=== PATIENT | male | born 1990 | race Caucasian/White ===

== ENCOUNTER 2024-05-08 22:35 | Inpatient (IN) | payer OTHER, SELFPAY ==
[2024-05-08 23:17] VITALS: RESP 16; BMI 29.5
--- NOTE | 2024-05-08 23:50 | ED.GENADULT ---
HPI - General Adult General Chief complaint: Psychiatric Symptoms Stated complaint: Psych Eval uncooperative Time Seen by Provider: 05/08/24 23:11 Source: patient, RN notes reviewed and old records reviewed Mode of arrival: EMS Limitations: no limitations History of Present Illness ED Provider: Alessandro RAYA narrative: 33-year-old male who denies any past medical history presents for evaluation of a ?psych eval. ? The police were called to the patient's apartment as he was reportedly screaming at the top of his lungs The patient reports that he was ?dealing with things. He does not want to answer any further questions He reports that he feels well overall He denies any previous psychiatric admissions The patient denies any illicit substance abuse He reports that he is not on any medications and is not supposed to be on any medications Per EMS, the patient was ordering multiple [employer] crosses online via his phone EN route to the hospital Related Data Home Medications ?Medication ?Instructions ?Recorded ?Confirmed No Known Home Meds 05/09/24 05/09/24 Allergies Allergy/AdvReac Type Severity Reaction Status Date / Time Unable to Assess Allergy Verified 05/08/24 23:23 Review of Systems Constitutional: Constitutional: Denies body ache(s), Denies chills, Denies fever(s) and Denies headache(s) Eyes: Eyes: Denies blurry vision ENT: Denies vertigo, Denies dizziness and Denies headache(s) Cardiovascular: Cardiovascular: Denies chest pain Respiratory: Respiratory: Denies cough Gastrointestinal: Gastrointestinal: Denies abdominal pain Musculoskeletal: Musculoskeletal: Denies back pain Integumentary/Breasts: Skin/Breast: Denies rash Neurologic: Denies vertigo, Denies dizziness and Denies headache(s) [facility] Social History Social History Household Members: Other Household Members Other:: another male Housing: Apartment Do you presently have visiting nurse or other home services: No Patient Tobacco Use Status: Never used Tobacco Use of substances other than those prescribed or required for medical reasons: No Other Past Substance Use Problem:: Tox screen negative Any prior treatment program specific to substance use: No Advance Directives: No Do you have a plan to hurt others: No Plan Recently lost weight without trying: No Eating poorly because of decreased appetite: No Nutrition Risks: No Nutritional Risk Poor oral hygiene: No Physical Exam ED Vital Signs: Vital Signs - 24 hr 05/08/24 23:17 05/09/24 02:36 Temperature 98.3 F Pulse Rate 113 H Respiratory Rate 16 16 Blood Pressure 126/85 Pulse Oximetry 95 Oxygen Delivery Method Room Air BMI result Body Mass Index 29.5 Const General: healthy appearing, comfortable, no acute distress, alert and awake Nutritional Appearance: well nourished Orientation/consciousness: patient oriented x3 HENMT Head: Yes normocephalic and Yes atraumatic Eyes Eyelids: Yes eyelids normal Conjunctivae: conjunctivae normal Sclerae: sclerae normal Corneas: corneas normal Pupils: Equal, round and reactive pupils present EOM: EOMs intact bilaterally Neck Neck: Yes full ROM Resp Effort & Inspection: normal respiratory effort, able to speak in complete sentences and not labored Skin General skin exam: elasticity normal Neuro General: patient oriented x3 Cranial nerves: Yes Equal, round and reactive pupils present and Yes Bilaterally intact EOM present Extrem Other: Moving all extremities well without any obvious deformities Course Reevaluation(s) Reevaluation #1: No acute events, patient otherwise appears well and is transferred up to the in patient is psychiatric unit. Physician obs has ended and patient has no resp distress, RRR, no abd abnml findings. Time: 12:36 Medical Decision Making Medical Decision Making MDM Narrative: 33-year-old male presents for evaluation on a section 12 for a psychiatric evaluation. The patient appears to be responding to internal stimuli. He does answer some questions in his answers seem appropriate. I do not have any previous encounters at this facility for previous psychiatric illnesses. The patient will require medical workup and a care team evaluation once cleared Differential Diagnosis Differential Diagnoses: The differential diagnosis associated with the presentation includes Schizophrenia Schizoaffective disorder Paranoia Psychosis Substance abuse Bipolar disorder Lab Data 05/09/24 09:15 05/09/24 09:15 Labs: Lab Results 05/09/24 05/09/24 Range/Units 05:13 09:15 WBC 9.3 (4.8-10.8) X10*3/uL RBC 5.74 (4.60-5.80) X10*6/uL Hgb 17.3 (14.0-18.0) g/dl Hct 48.6 (42.0-52.0) % MCV 84.7 (80.0-98.0) fL MCH 30.1 (27.0-33.0) pg MCHC 35.6 (31.0-36.0) g/dl RDW 11.7 (11.0-16.0) % Plt Count 285 (160-400) X10*3/uL MPV 10.0 (9.4-12.4) fL Immature Gran % (Auto) 0.3 (0.0-0.4) % Neut % (Auto) 57.5 (45-73) % Lymph % (Auto) 33.0 (20-40) % [place] % (Auto) 5.2 (2-11) % Eos % (Auto) 3.6 (0-4) % Baso % (Auto) 0.4 (0-2) % Lymph # (Auto) 3.1 (1.2-4.9) X10*3/uL [place] # (Auto) 0.5 (0.1-1.2) X10*3/uL Eos # (Auto) 0.3 (0.0-0.4) X10*3/uL Baso # (Auto) 0.0 (0.0-0.2) X10*3/uL Abs Immat Gran (auto) 0.03 (0.00-0.03) X10*3/uL Absolute Neuts (auto) 5.3 (2.0-8.3) x10*3/uL Absolute Nucleated RBC 0.000 (0.0-0.012) X10*3/uL Nucleated RBC % (auto) 0.0 (0.0-0.2) /100WBC Sodium 143 (135-145) mmol/L Potassium 4.1 (3.3-5.1) mmol/L Chloride 106 (96-108) mmol/L Carbon Dioxide 26 (22-29) mmol/L Anion Gap 15 (12-20) BUN 12 (9-16) mg/dL Creatinine 0.85 (0.5-1.4) mg/dL Estim Creat Clear Calc 138.8 Estimated GFR > 60 Random Glucose 148 H (60-115) mg/dL Calcium 9.4 (8.4-10.2) mg/dL Total Bilirubin 0.3 (0.0-1.0) mg/dL AST 19 (5-37) U/L ALT 28 (0-40) U/L Alkaline Phosphatase 63 (39-117) U/L Total Protein 7.1 (6.5-8.0) g/dL Albumin 4.4 (3.5-5.0) g/dL Salicylates < 5.0 L (15-30) mg/dL Urine Opiates Screen Not Detected (Not Detect) Ur Buprenorphine Scrn Not Detected (Not Detect) ng/mL Ur Oxycodone Screen Not Detected (Not Detect) ng/mL Urine Methadone Screen Not Detected (Not Detect) ng/mL Urine Fentanyl Screen Not Detected (Not Detect) Acetaminophen < 3 (<30) mcg/mL Ur Barbiturates Screen Not Detected (Not Detect) Ur Phencyclidine Scrn Not Detected (Not Detect) Ur Amphetamines Screen Not Detected (Not Detect) U Benzodiazepines Scrn Not Detected (Not Detect) Urine Cocaine Screen Not Detected (Not Detect) U Marijuana (THC) Screen Not Detected (Not Detect) Ethyl Alcohol < 10 mg/dL Discharge Plan Discharge Clinical Impression: Acute psychosis Patient Disposition: Admitted As Inpatient Interventions: Admission Worksheet (ED) Last Done: 05/09/24 13:18 Discharge Date/Time: 05/09/24 13:51
[2024-05-09 02:36] VITALS: BP 126/85; PULSE 113; RESP 16; TEMP 36.8; O2SAT 95
--- NOTE | 2024-05-09 03:15 | PC.NURSE ---
patient changing mind about being coop[erative to give sample, keeps trying to argue he was unwilling to give sample. patient spoke to t/w for 4 miutes or so and started getting angry and more demNDING. t/w ended conversation and redirected client to try and get rest.
--- NOTE | 2024-05-09 05:37 | PC.NURSE ---
self dialoguing in room,
[2024-05-09 05:55] LABS: Amphetamine Screen Urine Not Detected (Not Detect); Barbiturates, Urine Not Detected (Not Detect); Benzodiazepines Screen Urine Not Detected (Not Detect); Buprenorphine Scr Not Detected (Not Detect); Cannabinoid Screen Urine Not Detected (Not Detect); Cocaine Screen Urine Not Detected (Not Detect); Fentanyl, urine Not Detected (Not Detect); Methadone Screen, Urine Not Detected (Not Detect); Opiate Screen Urine Not Detected (Not Detect); Oxycodone Screen Urine Not Detected (Not Detect); Phencyclidine Screen Urine Not Detected (Not Detect)
--- NOTE | 2024-05-09 07:19 | PC.NURSE ---
Care of Pt assumed at change of shift. Pt observes resting quietly in bed. Breakfast tray provided.
[2024-05-09 09:21] LABS: MANUAL DIFF FLAG NO
[2024-05-09 09:24] LABS: Basophils Percent Auto 0.4 % (0-2); Eosinophils Absolute Auto 0.3 X10*3/uL (0.0-0.4); Eosinophils Percent Auto 3.6 % (0-4); Hematocrit 48.6 % (42.0-52.0); Hemoglobin 17.3 g/dl (14.0-18.0); Imm Gran Abs Auto 0.03 X10*3/uL (0.00-0.03); Imm Gran Pct Auto 0.3 % (0.0-0.4); Lymphocytes Absolute Auto 3.1 X10*3/uL (1.2-4.9); Mean Corpuscular HGB Conc 35.6 g/dl (31.0-36.0); Mean Corpuscular Hemoglobin 30.1 pg (27.0-33.0); Mean Corpuscular Volume 84.7 fL (80.0-98.0); Monocytes Absolute Auto 0.5 X10*3/uL (0.1-1.2); Monocytes Percent Auto 5.2 % (2-11); Neutrophils Absolute Auto 5.3 x10*3/uL (2.0-8.3); Neutrophils Percent Auto 57.5 % (45-73); Platelet Count 285 X10*3/uL (160-400); Red Blood Count 5.74 X10*6/uL (4.60-5.80); Red Cell Distribution Width 11.7 % (11.0-16.0); White Blood Count 9.3 X10*3/uL (4.8-10.8)
[2024-05-09 09:41] LABS: Acetaminophen LAB < 3 mcg/mL (<30); Alanine Aminotransferase 28 U/L (0-40); Albumin Level 4.4 g/dL (3.5-5.0); Alkaline Phosphatase 63 U/L (39-117); Anion Gap 15 (12-20); Aspartate Amino Transferase 19 U/L (5-37); Bilirubin Total 0.3 mg/dL (0.0-1.0); Blood Urea Nitrogen 12 mg/dL (9-16); Calcium 9.4 mg/dL (8.4-10.2); Carbon Dioxide 26 mmol/L (22-29); Chloride 106 mmol/L (96-108); Creatinine Clr Calc Pharmacy 138.8; Estimated Glomerular Filt Rate > 60; Ethanol < 10 mg/dL; Glucose Random 148 mg/dL (60-115); Potassium 4.1 mmol/L (3.3-5.1); Salicylate < 5.0 mg/dL (15-30); Sodium 143 mmol/L (135-145); Total Protein 7.1 g/dL (6.5-8.0)
--- NOTE | 2024-05-09 11:46 | PHA.MEDREC ---
Addendum entered by Chaz Nieto RPh 05/09/24 13:31: Med rec was reviewed by [facility]. Original Note: Pharmacy Consult ? Medication Reconciliation Pharmacy reviewed med rec done by nursing. No Known Home Meds was confirmed and after looking at/updating claims, no medication history can be found got them.
--- NOTE | 2024-05-09 13:48 | PC.NURSE ---
Pt admitted to inpatient floor. Verbal report given via phone to RN Luciano Upon arrival of petroleum transport driver and Security, Pt was resistive to wheelchair. After minutes of encouragement Pt was cooperative and placed himself in the wheelchair. Pt left unit without further issue.
[2024-05-09 14:17] VITALS: BP 123/69; PULSE 64; RESP 16; TEMP 37.2; O2SAT 98
--- NOTE | 2024-05-09 15:12 | PC.ADMIT ---
Pablito is 33 y/o [place]jib[place]citizen of [place] speaking male who was admitted to at 1355 from the [facility] on 12 for treatment of Unspecified Bipolar d/o with psychosis. Pt presented via ambulance after his roommate called EMS for pt screaming at the top of his lungs. Pt has had increased paranoia and psychosis. Pts cousin reports pt hasn't been taking medications, but when he does he is stable. Cousin reports pt was taking Risperdal. Pt is A&O x2, not to the situation. Pts mood and affect is angry and uncooperative. Pt refused to do the admission process telling TW ?go do what you do, I?m done, don?t ask me anything else.? Pt?s tone is tense and angry with glaring. Pt refused to sign EVANGELINA. Pt denied SI/HI/AH/VH, but does look internally preoccupied. Pt denied ideation, plan or intent to harm self or others. Pt refused to discuss appetite or sleep. Pts tox screen was negative. No medical issues noted or reported. Pt refused to discuss goals, stating, ?when do I get to go home. Pt placed on 15 minute safety checks. Pt refused an influenza vaccine.
[2024-05-09 20:15] VITALS: BP 135/75; PULSE 111; RESP 16; TEMP 36.8; O2SAT 97
[2024-05-10 07:42] VITALS: BP 117/71; PULSE 100; RESP 14; TEMP 36.9; O2SAT 98
--- NOTE | 2024-05-10 09:44 | HO.PSYADMNOT ---
HPI Date of Service: 05/10/24 Chief Complaint: Psychosis HPI Subjective Notes: Pool Warning Narrative: per CARE team eval, pt BIBA to [facility] after pt's roommate called police due to pt's yelling in their apartment. he reportedly has not been managing his ADLs and has been religiously preoccupied. observed to have been buying crucifixes on his phone during transportation to the ED. he was minimally cooperative with CARE team staff, refusing to answer most questions. he was described as appearing to be RIS during assessment. he avoided answering a questions re AH. he was observed by staff to be masturbating on top of his bed, in view of passers by. per collateral from pt's cousin mookie, pt is off baseline and has not been bathing or caring for himself and was described as despondent. brother reports pt has Dx of bipolar disorder. on interview with MD, pt appears sullen and surly. he denies mental illness and is verbally aggressive with MD on asking of routine psych eval questions, as he asserts the mere asking of the questions implies mental illness. pt states he will not take medications. he tersely answers questions and is quick to exit the interview. he is informed of 12b expiry on monday and legal requirement for some sort of action on that day on the hospital's part. asked MD to repeat some statements more than once. it was unclear if he lacks the cognitive capacity to understand complex concepts or if he was distracted by internal stimuli. Past Psychiatric History: hosps: fuck you, that's disrespectful. i told you i don't have mental illness. per collateral from cousin mookie, pt has been hospitalized at least once, in [facility]. SA: denies. per cousin, may have SA Hx. SIB: denies outpt: denies per brother, pt has h/o bipolar disorder Dx and risperidone Rx. Medical Evaluation Reviewed: Yes PMF Narrative: denies Family History: denies Social History: rents an apartment in [place]. has a roommate. 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 initially says he is unmarried and childless, then amends his answer to say he is and has 2 children and his and kids are in [place]. states he came to [place] 2 years ago. per brother, pt is from [place] where he was raised by both parents. he has 2 sibs (bro and sis). cousin reported he is never with no children. Substance History: denies use of nicotine/tobacco, alcohol, cannabis, and any other illicit or recreational drugs. Trauma History: not assessed Diagnostics Vital Signs (24Hr): Vital Signs - 24 hr 05/09/24 14:17 05/09/24 20:15 05/10/24 07:42 Temperature 98.9 F 98.3 F 98.4 F Pulse Rate 64 111 H 100 Respiratory Rate 16 16 14 Blood Pressure 123/69 135/75 117/71 Pulse Oximetry 98 97 98 Oxygen Delivery Method Room Air Room Air Room Air BMI result Body Mass Index 29.5 Labs 05/09/24 09:15 05/09/24 09:15 Labs: Laboratory Results - last 48 hr 05/09/24 05/09/24 05:13 09:15 WBC 9.3 RBC 5.74 Hgb 17.3 Hct 48.6 MCV 84.7 MCH 30.1 MCHC 35.6 RDW 11.7 Plt Count 285 MPV 10.0 Immature Gran % (Auto) 0.3 Neut % (Auto) 57.5 Lymph % (Auto) 33.0 [place] % (Auto) 5.2 Eos % (Auto) 3.6 Baso % (Auto) 0.4 Lymph # (Auto) 3.1 [place] # (Auto) 0.5 Eos # (Auto) 0.3 Baso # (Auto) 0.0 Abs Immat Gran (auto) 0.03 Absolute Neuts (auto) 5.3 Absolute Nucleated RBC 0.000 Nucleated RBC % (auto) 0.0 Sodium 143 Potassium 4.1 Chloride 106 Carbon Dioxide 26 Anion Gap 15 BUN 12 Creatinine 0.85 Estim Creat Clear Calc 138.8 Estimated GFR > 60 Random Glucose 148 H Calcium 9.4 Total Bilirubin 0.3 AST 19 ALT 28 Alkaline Phosphatase 63 Total Protein 7.1 Albumin 4.4 Salicylates < 5.0 L Urine Opiates Screen Not Detected Ur Buprenorphine Scrn Not Detected Ur Oxycodone Screen Not Detected Urine Methadone Screen Not Detected Urine Fentanyl Screen Not Detected Acetaminophen < 3 Ur Barbiturates Screen Not Detected Ur Phencyclidine Scrn Not Detected Ur Amphetamines Screen Not Detected U Benzodiazepines Scrn Not Detected Urine Cocaine Screen Not Detected U Marijuana (THC) Screen Not Detected Ethyl Alcohol < 10 Meds/Allergies Meds Home Medications ?Medication ?Instructions ?Recorded ?Confirmed ?Type No Known Home Meds 05/09/24 05/09/24 History Allergies Allergies Allergy/AdvReac Type Severity Reaction Status Date / Time Unable to Assess Allergy Verified 05/08/24 23:23 Mental Status Exam Mental Status Exam Narrative: adequately dressed and groomed. superficially cooperative, but comes across as surly, resentful, and angry. no PMA/PMR. speech decr amount. nml loudness, latency. thoughts linear and variably logical. affect constricted, hyper-intense, non-labile, not c/w stated mood. mood good. denies SI/SIBI/HI/AVH. Assessment & Plan Assessment & Plan (1) Unspecified psychosis: Status: Acute Code(s): F29 - Unspecified psychosis not due to a substance or known physiological condition Plan pt denies mental illness and states he will not take medication. informed he would be kept here for a period of observation and that the decision about discharge would be made monday. pool warning provided. offer risperidone 2 mg QHS. Patient educated on: diagnosis and medication risk/benefits Reason for continued inpatient stay Substantial Risk for: inability to function Statement Statement: I have reviewed the history and physical and performed a pertinent examination on my patient. No changes have occurred unless specified. If the History and Physical was not performed prior to admission, the Hospitalist's service will be consulted for completing the admission physical. Time Spent With Patient Time: Total time managing care of this patient today __55__ minutes.
[2024-05-10 19:58] VITALS: RESP 18
--- NOTE | 2024-05-11 07:40 | P.PNPSI_ITS ---
Subjective Subjective Date of Service: 05/11/24 Reason For Visit: Psychosis Subjective Notes: Section 12B Interim History: flat, guarded and not attending groups as per nursing. Refusing medications. With remote mortgage underwriter would not engage and appeared very paranoid. Medication Compliance: No Side effects from medications: No Attending Groups: No Review of Systems Acute medical concerns: No Review of Systems Review of Systems Yes Unobtainable due to mental status Mental Status Exam Mental Status Exam Narrative: adequately dressed and groomed. Very paranoid and would not engage. Unable to assess SI, HI, hallucinations. Diagnostics Vital Signs (24Hr): Vital Signs - 24 hr 05/10/24 07:42 05/10/24 19:58 Temperature 98.4 F Pulse Rate 100 Respiratory Rate 14 18 Blood Pressure 117/71 Pulse Oximetry 98 Oxygen Delivery Method Room Air BMI result Body Mass Index 29.5 Labs 05/09/24 09:15 05/09/24 09:15 Labs: Laboratory Results - last 48 hr 05/09/24 09:15 WBC 9.3 RBC 5.74 Hgb 17.3 Hct 48.6 MCV 84.7 MCH 30.1 MCHC 35.6 RDW 11.7 Plt Count 285 MPV 10.0 Immature Gran % (Auto) 0.3 Neut % (Auto) 57.5 Lymph % (Auto) 33.0 [place] % (Auto) 5.2 Eos % (Auto) 3.6 Baso % (Auto) 0.4 Lymph # (Auto) 3.1 [place] # (Auto) 0.5 Eos # (Auto) 0.3 Baso # (Auto) 0.0 Abs Immat Gran (auto) 0.03 Absolute Neuts (auto) 5.3 Absolute Nucleated RBC 0.000 Nucleated RBC % (auto) 0.0 Sodium 143 Potassium 4.1 Chloride 106 Carbon Dioxide 26 Anion Gap 15 BUN 12 Creatinine 0.85 Estim Creat Clear Calc 138.8 Estimated GFR > 60 Random Glucose 148 H Calcium 9.4 Total Bilirubin 0.3 AST 19 ALT 28 Alkaline Phosphatase 63 Total Protein 7.1 Albumin 4.4 Salicylates < 5.0 L Acetaminophen < 3 Ethyl Alcohol < 10 Medications Medications Current Medications Acetaminophen (Acetaminophen 325 Mg Tablet) 650 mg PO Q6H PRN PRN Reason: Headache/Pain Mild Scale (1-3) Al Hydroxide/Mg Hydroxide (Magnesium Hydrox/Alum Hydrox 30 Ml Oral.Susp) 30 ml PO Q6H PRN PRN Reason: Heartburn/Nausea Hydroxyzine HCl (Hydroxyzine Hcl 25 Mg Tablet) 25 mg PO Q6H PRN PRN Reason: Anxiety Magnesium Hydroxide (Milk Of Magnesia 30 Ml Oral.Susp) 30 ml PO DAILY PRN PRN Reason: Constipation Nicotine Polacrilex (Nicotine Polacrilex 2 Mg Gum) 4 mg BUCCAL Q2H PRN PRN Reason: Nicotine Cravings Risperidone (Risperidone 2 Mg Tablet) 2 mg PO BEDTIME MARLA Last Admin: 05/10/24 22:37 Dose: Not Given Trazodone HCl (Trazodone Hcl 50 Mg Tablet) 50 mg PO BEDTIME MRX1 PRN PRN Reason: Insomnia Allergies Allergies Allergy/AdvReac Type Severity Reaction Status Date / Time Unable to Assess Allergy Verified 05/08/24 23:23 Assessment & Plan Assessment & Plan (1) Unspecified psychosis: Status: Acute Code(s): F29 - Unspecified psychosis not due to a substance or known physiological condition Plan pt denies mental illness and states he will not take medication. informed he would be kept here for a period of observation and that the decision about discharge would be made monday. pete warning provided. offer risperidone 2 mg QHS. 05/11/2024: Continue to offer Risperdal. Undergoing safety evaluation in context of Section 12 B which expires on 05/14/2024 Reason for continued inpatient stay Substantial Risk for: rapid decompensation Time Spent With Patient Time: Total time managing care of this patient today ____ minutes.
[2024-05-11 08:00] VITALS: RESP 18
[2024-05-11 20:00] VITALS: RESP 18
[2024-05-12 08:00] VITALS: BP 122/87; PULSE 89; RESP 18; TEMP 36.8; O2SAT 99
--- NOTE | 2024-05-12 10:16 | HO.PSYCHPN ---
Subjective Subjective Date of Service: 05/12/24 Reason For Visit: Psychosis Subjective Notes: Section 12B Interim History: Flat, guarded and not attending groups as per nursing. Refusing medications. Intense affect. Very paranoid and would not engage again why do you want to talk with me? I am fine. Whats going on, I dont want to talk . Review of Systems Review of Systems Yes Unobtainable due to mental status Mental Status Exam Mental Status Exam Narrative: adequately dressed and groomed. Intense affect. Very paranoid and would not engage again why do you want to talk with me? I am fine. Whats going on, I dont want to talk . Unable to assess SI, HI, hallucinations. Diagnostics Vital Signs (24Hr): Vital Signs - 24 hr 05/11/24 20:00 05/12/24 08:00 Temperature 98.3 F Pulse Rate 89 Respiratory Rate 18 18 Blood Pressure 122/87 Pulse Oximetry 99 Oxygen Delivery Method Room Air BMI result Body Mass Index 29.5 Labs 05/09/24 09:15 05/09/24 09:15 Medications Medications Current Medications Acetaminophen (Acetaminophen 325 Mg Tablet) 650 mg PO Q6H PRN PRN Reason: Headache/Pain Mild Scale (1-3) Al Hydroxide/Mg Hydroxide (Magnesium Hydrox/Alum Hydrox 30 Ml Oral.Susp) 30 ml PO Q6H PRN PRN Reason: Heartburn/Nausea Hydroxyzine HCl (Hydroxyzine Hcl 25 Mg Tablet) 25 mg PO Q6H PRN PRN Reason: Anxiety Magnesium Hydroxide (Milk Of Magnesia 30 Ml Oral.Susp) 30 ml PO DAILY PRN PRN Reason: Constipation Nicotine Polacrilex (Nicotine Polacrilex 2 Mg Gum) 4 mg BUCCAL Q2H PRN PRN Reason: Nicotine Cravings Risperidone (Risperidone 2 Mg Tablet) 2 mg PO BEDTIME MARLA Last Admin: 05/11/24 21:14 Dose: Not Given Trazodone HCl (Trazodone Hcl 50 Mg Tablet) 50 mg PO BEDTIME MRX1 PRN PRN Reason: Insomnia Allergies Allergies Allergy/AdvReac Type Severity Reaction Status Date / Time Unable to Assess Allergy Verified 05/08/24 23:23 Assessment & Plan Assessment & Plan (1) Unspecified psychosis: Status: Acute Code(s): F29 - Unspecified psychosis not due to a substance or known physiological condition Plan pt denies mental illness and states he will not take medication. informed he would be kept here for a period of observation and that the decision about discharge would be made monday. pete warning provided. offer risperidone 2 mg QHS. 05/12/2024: Continue to offer Risperdal. Undergoing safety evaluation in context of Section 12 B which expires on 05/14/2024 Reason for continued inpatient stay Substantial Risk for: rapid decompensation Time Spent With Patient Time: Total time managing care of this patient today ____ minutes.
[2024-05-12 20:00] VITALS: RESP 18
--- NOTE | 2024-05-13 11:34 | PM.PSYDC ---
DS: Providers Provider Date of Service: 05/13/24 Date of admission: 05/09/24 12:37 Primary care physician: Unknown Physician DS: Diagnosis Discharge Diagnosis (1) Unspecified psychosis: Status: Acute DS: Medications Discharge Medications Home Medications: Home Medications ?Medication ?Instructions ?Recorded ?Confirmed No Known Home Meds 05/09/24 05/09/24 Mental Status Exam Mental Status Exam Narrative: adequately dressed and groomed. superficially cooperative, but comes across as surly. no PMA/PMR. speech decr amount. nml loudness, incr latency. thoughts linear and logical. affect constricted, normo-intense, non-labile, c/w stated mood. mood fine. denies SI/SIBI/HI/AVH. Data Data Completed and Pending Completed studies during hospitalization [Text1]: 05/09/24 05/09/24 05:13 09:15 WBC 9.3 RBC 5.74 Hgb 17.3 Hct 48.6 MCV 84.7 MCH 30.1 MCHC 35.6 RDW 11.7 Plt Count 285 MPV 10.0 Immature Gran % (Auto) 0.3 Neut % (Auto) 57.5 Lymph % (Auto) 33.0 [place] % (Auto) 5.2 Eos % (Auto) 3.6 Baso % (Auto) 0.4 Lymph # (Auto) 3.1 [place] # (Auto) 0.5 Eos # (Auto) 0.3 Baso # (Auto) 0.0 Abs Immat Gran (auto) 0.03 Absolute Neuts (auto) 5.3 Absolute Nucleated RBC 0.000 Nucleated RBC % (auto) 0.0 Sodium 143 Potassium 4.1 Chloride 106 Carbon Dioxide 26 Anion Gap 15 BUN 12 Creatinine 0.85 Estim Creat Clear Calc 138.8 Estimated GFR > 60 Random Glucose 148 H Calcium 9.4 Total Bilirubin 0.3 AST 19 ALT 28 Alkaline Phosphatase 63 Total Protein 7.1 Albumin 4.4 Salicylates < 5.0 L Urine Opiates Screen Not Detected Ur Buprenorphine Scrn Not Detected Ur Oxycodone Screen Not Detected Urine Methadone Screen Not Detected Urine Fentanyl Screen Not Detected Acetaminophen < 3 Ur Barbiturates Screen Not Detected Ur Phencyclidine Scrn Not Detected Ur Amphetamines Screen Not Detected U Benzodiazepines Scrn Not Detected Urine Cocaine Screen Not Detected U Marijuana (THC) Screen Not Detected Ethyl Alcohol < 10 DS: Summary Hospital Course Hospital Course: per 05/10 admission note: HPI Subjective Notes: Pool Warning Narrative: per CARE team eval, pt BIBA to [facility] after pt's roommate called police due to pt's yelling in their apartment. he reportedly has not been managing his ADLs and has been religiously preoccupied. observed to have been buying crucifixes on his phone during transportation to the ED. he was minimally cooperative with CARE team staff, refusing to answer most questions. he was described as appearing to be RIS during assessment. he avoided answering a questions re AH. he was observed by staff to be masturbating on top of his bed, in view of passers by. per collateral from pt's cousin mookie, pt is off baseline and has not been bathing or caring for himself and was described as despondent. brother reports pt has Dx of bipolar disorder. on interview with MD, pt appears sullen and surly. he denies mental illness and is verbally aggressive with MD on asking of routine psych eval questions, as he asserts the mere asking of the questions implies mental illness. pt states he will not take medications. he tersely answers questions and is quick to exit the interview. he is informed of 12b expiry on monday and legal requirement for some sort of action on that day on the hospital's part. asked MD to repeat some statements more than once. it was unclear if he lacks the cognitive capacity to understand complex concepts or if he was distracted by internal stimuli. Past Psychiatric History: hosps: fuck you, that's disrespectful. i told you i don't have mental illness. per collateral from cousin mookie, pt has been hospitalized at least once, in [facility]. SA: denies. per cousin, may have SA Hx. SIB: denies outpt: denies per brother, pt has h/o bipolar disorder Dx and risperidone Rx. Medical Evaluation Reviewed: Yes PMF Narrative: denies Family History: denies Social History: rents an apartment in [place]. has a roommate. 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 initially says he is unmarried and childless, then amends his answer to say he is and has 2 children and his and kids are in [place]. states he came to [place] 2 years ago. per brother, pt is from [place] where he was raised by both parents. he has 2 sibs (bro and sis). cousin reported he is never with no children. Substance History: denies use of nicotine/tobacco, alcohol, cannabis, and any other illicit or recreational drugs. Trauma History: not assessed Precis: 05/10: pt denies mental illness and states he will not take medication. informed he would be kept here for a period of observation and that the decision about discharge would be made monday. pool warning provided. offer risperidone 2 mg QHS. 05/12: Continue to offer Risperdal. Undergoing safety evaluation in context of Section 12 B which expires on 05/14/2024. 05/13: no notable events over w/e. pt declining meds. declining aftercare. planning to discharge tomorrow upon expiry of 12b. continue current mgmt through then. 05/14: no events overnight. discharged as per plan. Time Spent with Patient Time attestation: Total time managing care of this patient today __35__ minutes. Discharge Plan Discharge Anticipated Discharge Date/Time: 05/14/24 11:00 Patient Disposition: Home, Self-Care Discharge Diagnosis: Psychotic Disorder NOS Referrals: Therapy & Psychiatry [Other] - 1 Week (You can present to the clinic listed above, Monday through Monday between the hours of 10am and 12pm, in order to obtain outpatient mental health providers. Please bring your insurance card with you. ) [facility] [Provider Group] - 1 Week ([facility] has been added to patients chart. Please call [phone] for follow up appt.) Discharge Medications: No Action No Known Home Meds Discharge Orders: Discharge Order (Routine); Ordered 05/14/24 Ordered By: David Meier Diet: Advance to usual diet Activity on Discharge: As tolerated Stand Alone Forms: Patient Portal Discharge page, Community Support Print Language: Vincentian Care Plan Goals: remain safe and stable in the outpatient treatment setting Health Concerns: none Plan of Treatment: you are encouraged to seek out mental health care in the community; medication therapy is recommended. Assessment: not at imminent risk of harm to self or others Discharge Date/Time: 05/14/24 10:45
[2024-05-13 20:00] VITALS: RESP 16
[2024-05-14 08:00] VITALS: BP 144/84; PULSE 74; RESP 16; TEMP 36.9; O2SAT 98
== END 2024-05-14 10:45 | disposition home or self-care (01) | DRG 751 ==
LOC: HO.ED 05-09 07:55 → HO.PADLT16 05-09 12:43
PROVIDERS: Physician Assistant; Admitting Provider Psychiatry & Neurology Psychiatry; Emergency Provider Internal Medicine; Visit Provider Psychiatry & Neurology Psychiatry
DX: F29 Unspecified psychosis not due to a substance or known physiological condition (principal)
CPT/HCPCS: 36415; 80053; 80143; 80179; 80307; 85025; 99285

== ENCOUNTER → 2024-05-09 12:37 | Outpatient (BNV) | payer OTHER, SELFPAY | PROVIDERS: Admitting Provider Psychiatry & Neurology Psychiatry; Emergency Provider Internal Medicine; Visit Provider Psychiatry & Neurology Psychiatry | DX: F29 Unspecified psychosis not due to a substance or known physiological condition (principal) | CPT/HCPCS: 90792; 99231; 99232 ==

== ENCOUNTER 2024-06-20 00:49 | Inpatient (IN) | payer OTHER, SELFPAY ==
[2024-06-20 00:53] VITALS: BP 180/90; BP 98/77; PULSE 104; PULSE 106; RESP 20; O2SAT 100; BMI 33.4
--- NOTE | 2024-06-20 01:16 | PC.NURSE ---
Patient refusing labs at this time and stated, dont ask me again. Patient brought in with Police and security, calm and slightly cooperative. Patient uncooperative when it comes to nursing exam, will only answer some questions and answers do not make sense at times. Patient states he has not eaten or slept for 2 weeks, requesting food here, food given to patient and patient is eating. Patient has very vague HI comments about his roommate.
[2024-06-20 01:24] LABS: Appearance Urine Clear; Color Urine Yellow; Glucose Urine UA Negative (Negative); Leukocyte Esterase Urine Negative (Negative); Nitrite Urine Negative (Negative); PH 5.5 (5.0-9.0); Urine Blood Negative (Negative); Urine Ketones Negative (Negative); Urine Protein Trace mg/dL (Neg-Trace)
--- NOTE | 2024-06-20 01:27 | PC.NURSE ---
Patient currently denies SI but has very vague HI comments regarding the roommate, and endorses auditory and visual hallucinations. He also states he takes no medications.
[2024-06-20 01:29] LABS: Bacteria Urine None Seen (None Seen); Hyaline Casts Urine 0-2 /LPF (0-2); RBC Urine 0-2 /HPF (0-2); Squamous Epithelial Cell Urine 0-2 /HPF (0-2); WBC Urine 0-5 /HPF (0-5)
[2024-06-20 01:33] LABS: Amphetamine Screen Urine Not Detected (Not Detect); Barbiturates, Urine Not Detected (Not Detect); Benzodiazepines Screen Urine Not Detected (Not Detect); Buprenorphine Scr Not Detected (Not Detect); Cannabinoid Screen Urine Not Detected (Not Detect); Cocaine Screen Urine Not Detected (Not Detect); Fentanyl, urine Not Detected (Not Detect); Methadone Screen, Urine Not Detected (Not Detect); Opiate Screen Urine Not Detected (Not Detect); Oxycodone Screen Urine Not Detected (Not Detect); Phencyclidine Screen Urine Not Detected (Not Detect)
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
--- NOTE | 2024-06-20 03:10 | PC.NURSE ---
Currently sitting on bed rocking back and forth and laughing; appears to be responding to some sort of internal stimuli at this time. will continue to monitor
--- NOTE | 2024-06-20 05:08 | PC.NURSE ---
Patient found to be sexually fondling himself - refuses to allow staff to close door or place blanket over patient. Staff reminded patient that he was on camera and that he was being inappropriate for the setting.
[2024-06-20 05:09] VITALS: RESP 22
--- NOTE | 2024-06-20 07:16 | PC.NURSE ---
Assumed care of patient at 0645, patient appears to be in no apparent distress this am, asking when he will be evalautated by CARE team. Patient is now laying in bed eating breakfast, offering no complaints. Continue plan of care for CARE team eval
--- NOTE | 2024-06-20 07:36 | PC.NURSE ---
pt visualized masturbating in his room with his pants pulled down. Pt asked to cover up however, patient refusing
--- NOTE | 2024-06-20 08:52 | PC.NURSE ---
Pt adamantly refusing labs
--- NOTE | 2024-06-20 09:52 | PC.NURSE ---
CARE team Shital at bedside to talk with patient, patient now resting, offering no complaints
--- NOTE | 2024-06-20 11:02 | MHC.CARE ---
Patient did agree to sign EVANGELINA for [facility] where he was allegedly treated in the past and prescribed risperidone, which per his cousin is noted to have been effective. He refused to sign one for his cousin, Vidal, and requested t/w never speak Vidal's name again. The signed EVANGELINA for [facility] and the unsigned EVANGELINA for Vidal are in lula's chart.
--- NOTE | 2024-06-20 14:57 | PHA.MEDREC ---
Addendum entered by Sha Wang [facility] 06/20/24 15:34: MED REC CHECKED BY [facility] Original Note: Pharmacy Consult ? Medication Reconciliation Pharmacy reviewed med rec done by nursing. No Known Home Meds confirmed by nursing. Looking in claims and updating it no medication history is received.
--- NOTE | 2024-06-20 16:57 | PC.ADMIT ---
Pt arrived on the unit at 1457 from [facility] ED POD. Pt was brought into [facility] via [employer] d/t a call from patient's room mate (cousin). Per crisis, cousin reported that the patient was making HI statements about several people. 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 Pt is a chronic masturbator, and will not stop upon request. He was observed eating his semen in the POD. He has been agitated in POD and on M3. He refused his admission process, and doing a skin check took an extended amount of time d/t him being uncooperative. Skin check unremarkable. POD RN's and this comic book writer have both observed pt to laugh at inappropriate times. Pt has a delay in response and appears to be responding to internal stimuli. His concentration level is very poor. Toxicology was negative for everything. Pt currently refusing medications.
[2024-06-20 20:00] VITALS: RESP 16
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
[2024-06-21 20:17] VITALS: RESP 16
[2024-06-22] MEDS: HaloperidoL 5 MG TABLET PO ×2 (08:29→23:05)
[2024-06-22 08:38] VITALS: BP 131/88; PULSE 98; RESP 16; TEMP 36.5; O2SAT 98
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
[2024-06-22 20:45] VITALS: RESP 16
[2024-06-23 08:00] VITALS: RESP 18
--- NOTE | 2024-06-23 08:55 | PC.NURSE ---
Pablito cifuentes AM Haldol stating it made me have weird effects yesterday. I don't take medications , Tobias Willard MD made aware.
--- NOTE | 2024-06-23 12:35 | HO.PSYCHPN ---
Subjective Subjective Date of Service: 06/23/24 Reason For Visit: HI/psychosis Interim History: Nursing staff reported the patient had been delusional stating that Haldol making him feel uncomfortable so he refused last night. He slept 3 hours. On interview the patient remains paranoid, internally preoccupied. Mental Status Exam Mental Status Exam Patient Appearance: Unkempt Patient Orientation: Person and Situation Level of Consciousness: Awake and Appropriate Patient Behavior: Guarded and Passive Mood Description: Withdrawn Affect Description: Blunted Patient Cognition Impaired: Yes Ability to Follow Directions: Fair Speech Pattern: Impoverished Hallucinations: None Delusions: Paranoid Ideation and Ideas of Reference Thought Process: Illogical and Slowed Thinking Thought Content: positive for [place] and positive for Poverty of Content Judgement: Poor Diagnostics Vital Signs (24Hr): Vital Signs - 24 hr 06/22/24 20:45 06/23/24 08:00 Respiratory Rate 16 18 BMI result Body Mass Index 33.4 Medications Medications Current Medications Acetaminophen (Acetaminophen 325 Mg Tablet) 650 mg PO Q6H PRN PRN Reason: Headache/Pain Mild Scale (1-3) Al Hydroxide/Mg Hydroxide (Magnesium Hydrox/Alum Hydrox 30 Ml Oral.Susp) 30 ml PO Q6H PRN PRN Reason: Heartburn/Nausea Haloperidol (Haloperidol 5 Mg Tablet) 5 mg PO BID MARLA Last Admin: 06/23/24 08:53 Dose: Not Given Hydroxyzine HCl (Hydroxyzine Hcl 25 Mg Tablet) 25 mg PO Q6H PRN PRN Reason: Anxiety Magnesium Hydroxide (Milk Of Magnesia 30 Ml Oral.Susp) 30 ml PO DAILY PRN PRN Reason: Constipation Nicotine Polacrilex (Nicotine Polacrilex 2 Mg Gum) 4 mg BUCCAL Q2H PRN PRN Reason: Nicotine Cravings Olanzapine (Olanzapine Odt 10 Mg Tab.Rapdis) 10 mg TRANSLINGU Q4H PRN PRN Reason: agitation Trazodone HCl (Trazodone Hcl 50 Mg Tablet) 50 mg PO BEDTIME MRX1 PRN PRN Reason: Insomnia Allergies Allergies Allergy/AdvReac Type Severity Reaction Status Date / Time No Known Allergies Allergy Verified 06/20/24 01:05 Assessment & Plan Assessment & Plan (1) Unspecified psychosis: Status: Acute Code(s): F29 - Unspecified psychosis not due to a substance or known physiological condition Plan haldol 5 BID 06/22 the patient had being masturbating in public in front of his roommates. He needed to be moved to a private room. He remains grossly disorganized, hostile but he took his Haldol today in the morning. He refused Haldol yesterday. Continue with same treatment. 06/23 the patient has refused 1 dose of Haldol, remains paranoid. Reason for continued inpatient stay Substantial Risk for: inability to function, rapid decompensation and med/psych decompensation Time Spent With Patient Time: Total time managing care of this patient today _20___ minutes.
[2024-06-23 20:00] VITALS: BP 139/84; PULSE 100; RESP 16; TEMP 36.8; O2SAT 97
--- NOTE | 2024-06-23 20:29 | PC.NURSE ---
Pt refused HS Jerry @ 2029, states I have reaction after taken the meds .
[2024-06-24 07:35] VITALS: BP 152/87; PULSE 102; RESP 16; TEMP 36.3; O2SAT 98
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
[2024-06-24] MEDS: risperiDONE 1 MG TABLET PO (14:16)
[2024-06-24] MEDS: Nicotine Polacrilex 2 MG GUM 4 MG BUCCAL (17:52)
[2024-06-24 20:00] VITALS: BP 135/84; PULSE 106; RESP 16; TEMP 36.9; O2SAT 97
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
[2024-06-25 15:00] VITALS: BP 114/65; PULSE 120; RESP 16; TEMP 38.4; O2SAT 97
[2024-06-25] MEDS: risperiDONE 1 MG TABLET PO (16:58)
[2024-06-25] MEDS: Acetaminophen 325 MG TABLET 650 MG PO (21:34)
[2024-06-25 23:00] VITALS: TEMP 37.1
[2024-06-26 07:15] VITALS: BP 129/78; PULSE 91; RESP 14; TEMP 36.8; O2SAT 93
[2024-06-26] MEDS: risperiDONE 1 MG TABLET PO (08:20)
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
== END 2024-06-26 10:40 | disposition home or self-care (01) | DRG 751 ==
LOC: HO.ED 02:57 → HO.PADLT16 13:51
PROVIDERS: Admitting Provider Psychiatry & Neurology Psychiatry; Emergency Provider Emergency Medicine; PCP Internal Medicine; Visit Provider Psychiatry & Neurology Psychiatry
DX: F29 Unspecified psychosis not due to a substance or known physiological condition (principal); R45.850 Homicidal ideations; Z91.148 Patient's other noncompliance with medication regimen for other reason; Z79.899 Other long term (current) drug therapy
CPT/HCPCS: 80307; 81001; 99285; S9485

== ENCOUNTER → 2024-06-20 13:46 | Outpatient (BNV) | payer OTHER, SELFPAY | PROVIDERS: Admitting Provider Psychiatry & Neurology Psychiatry; Emergency Provider Emergency Medicine; PCP Internal Medicine; Visit Provider Psychiatry & Neurology Psychiatry | DX: F29 Unspecified psychosis not due to a substance or known physiological condition (principal) | CPT/HCPCS: 90792; 99231; 99232; 99238 ==